=== PATIENT | female | born 1955 | race Caucasian/White ===

== ENCOUNTER → 2021-12-20 | Outpatient (CLI) | payer MEDICARE ==
[~2021-12-20] MED LIST: AMOCLA875 PO; CODGUAEL PO; OXYACE5T PO; RANI150 PO
== END | disposition home or self-care (01) ==
LOC: LAB SHORT 14:52
DX: D04.72 Carcinoma in situ of skin of left lower limb, including hip (principal)
CPT/HCPCS: 88305

== ENCOUNTER → 2022-01-10 | Outpatient (CLI) | payer MEDICARE | END | disposition home or self-care (01) | LOC: LAB SHORT 07:45 | DX: L72.0 Epidermal cyst (principal) | CPT/HCPCS: 88304 ==

== ENCOUNTER → 2022-10-03 | Outpatient (CLI) | payer OTHER | END | disposition home or self-care (01) | LOC: PLD 14:37 → LAB SHORT 14:37 | DX: C44.612 Basal cell carcinoma of skin of right upper limb, including shoulder (principal) | CPT/HCPCS: 88305 ==

== ENCOUNTER → 2023-11-04 | Outpatient (CLI) | payer OTHER | END | disposition home or self-care (01) | LOC: LAB SHORT 09:13 → LAB 09:13 | DX: L57.0 Actinic keratosis (principal); D48.5 Neoplasm of uncertain behavior of skin | CPT/HCPCS: 88305 ==

== ENCOUNTER 2024-12-10 12:48 | Day surgery (SDC) | payer OTHER ==
[~2024-12-10] VITALS: Ht 160 cm; Wt 79.5 kg
[~2024-12-10 12:48] MED LIST changes: +Atropine Sulfate 0.1 MG/ML 10ML SYR ONE; +Glycopyrrolate 0.2 MG/ML 1MLVIAL ONE; +Lactated Ringer's 1,000 ML IV ONE; +Lidocaine 2% 5 ML SDV ONE; +Lidocaine HCl/Pf 1% 5 ML VIAL ONE; +Ondansetron HCl 2 MG / ML 2ML Vial ONE; +ePHEDrine Sulfate 50 MG/ML 1ML Injection ONE; +propofoL 50 ML IV ONE
[2024-12-10] MEDS ORDERED: FAMO20 (13:22)
[2024-12-10] MEDS ORDERED: LEVOCETIRIZINE D5 MG (13:22)
[2024-12-10] MEDS ORDERED: VITAMIN D5000 UNIT (13:23)
[2024-12-10] MEDS ORDERED: TRAZ50 (13:23)
[2024-12-10] MEDS ORDERED: Aldactone50 MG (13:23)
[2024-12-10] MEDS ORDERED: C COMPLEX1000 M1 (13:24)
[2024-12-10] MEDS ORDERED: CALCIUM 500 MG1 EAC7 (13:24)
[2024-12-10] MEDS ORDERED: B-12 COMPL1000 MCG/2 (13:24)
[2024-12-10] MEDS ORDERED: [UNRECOGNIZED DRUG - OTHER] (13:25)
[2024-12-10] MEDS ORDERED: OMEGA MONOPURE (13:25)
[2024-12-10] MEDS ORDERED: Lactated Ringer's 1,000 ML IV ONE ×3 (14:00→16:40)
[2024-12-10] MEDS ORDERED: propofoL 50 ML IV ONE ×2 (15:18→16:19)
[2024-12-10] MEDS ORDERED: Ondansetron HCl 2 MG / ML 2ML Vial ONE (15:39)
[2024-12-10 17:30] VITALS: BP 145/85
== END 2024-12-10 17:25 | disposition home or self-care (01) ==
LOC: ORSCSDS 12:48
PROVIDERS: Internal Medicine Gastroenterology
PROC: 0DBH8ZX Excision of Cecum, Via Natural or Artificial Opening Endoscopic, Diagnostic (ICD-10-PCS; principal; 2024-12-10 14:00)
PROC: 0DBL8ZX Excision of Transverse Colon, Via Natural or Artificial Opening Endoscopic, Diagnostic (ICD-10-PCS; principal; 2024-12-10 14:00)
PROC: 0W3P8ZZ Control Bleeding in Gastrointestinal Tract, Via Natural or Artificial Opening Endoscopic (ICD-10-PCS; principal; 2024-12-10 14:00)
DX: Z12.11 Encounter for screening for malignant neoplasm of colon (principal); Z86.0100 Personal history of colon polyps, unspecified; K63.5 Polyp of colon; K55.21 Angiodysplasia of colon with hemorrhage; K57.30 Diverticulosis of large intestine without perforation or abscess without bleeding; K64.4 Residual hemorrhoidal skin tags; E66.9 Obesity, unspecified; Z68.34 Body mass index [BMI] 34.0-34.9, adult; Z79.899 Other long term (current) drug therapy
CPT/HCPCS: 88305; J0461; J2003; J2405; J2704; J7120